=== PATIENT | female | born 1975 | race Caucasian/White ===

== ENCOUNTER 2019-08-10 06:27 | Inpatient (IN) ==
[2019-08-10] MEDS ORDERED: D5LR 1L W PITOCIN 10 UNITS/L 10 UNITS/1,000 ML BAG IV ONE (06:35)
[2019-08-10] MEDS ORDERED: D5 1/2 NS 1000 ML 1,000 ML IV ONE (06:36)
[2019-08-10] MEDS ORDERED: PITOCIN ONE (06:36)
[2019-08-10] MEDS ORDERED: D5 1/2 NS 1L W PITOCIN 20 UNITS/L 20 UNITS/1,000 ML BAG IV ONE (06:36)
--- NOTE | 2019-08-10 07:30 | DR.OB ---
OB Quick Note - Assessment/Plan Assessment/Plan: L&D 08/10/19 at 7:05am S-No complaint. O-Afebrile,VSS IEK=123 with good LTV, +accel, no decel. CTX=none CVX=1cm/25%/-2/VTX AROM with clear fluid. IUPC and FSE placed. A-IUP at 39 0/7 weeks for induction P-Begin pitocin induction Anticipate
[2019-08-10] MEDS ORDERED: REGLAN INJ 10 MG VIAL IVP PRN (07:51)
[2019-08-10] MEDS ORDERED: PITOCIN IVP ONE (07:51)
[2019-08-10] MEDS ORDERED: MORPHINE SULFATE INJ 2 MG INJ IVP PRN (07:51)
[2019-08-10] MEDS ORDERED: PHENERGAN INJ 25 MG IM PRN ×2 (07:51→17:03)
[2019-08-10] MEDS ORDERED: NUBAIN INJ 200 MG VIAL MULTIDOSE IVP PRN (07:51)
[2019-08-10] MEDS ORDERED: D5LR 1L W PITOCIN 10 UNITS/L 10 UNITS/1,000 ML BAG IV PRN (07:51)
[2019-08-10] MEDS ORDERED: LR 1000 ML IV 1,000 ML IV ONE (09:17)
[2019-08-10] MEDS ORDERED: NAROPIN EPIDURAL 0.2% + FENTANYL 90MCG 60 ML EPI ONE ×2 (09:18→15:04)
[2019-08-10] MEDS ORDERED: FENTANYL INJ 100 mcg ONE ×2 (09:18→12:36)
[2019-08-10] MEDS ORDERED: XYLOCAINE-MPF 1% ONE (09:48)
[2019-08-10] MEDS ORDERED: XYLOCAINE 1 % (PLAIN) ONE (09:55)
--- NOTE | 2019-08-10 12:10 | DR.OB ---
OB Quick Note - Assessment/Plan Assessment/Plan: L&D 08/10/19 at 12:00pm Pitocin=12mu/min. S-No complaint. s/p epidural. O-Afebrile,VSS SEL=337 with good LTV, +accel, no decel. CTX=q 1 1/2 to 2 min., about 35-45mmHg CVX=4cm/75%/-1 A-IUP at 39 0/7 weeks for induction AMA P-Cont. pitocin induction Anticipate
[2019-08-10] MEDS ORDERED: MARCAINE 0.25% INJ ONE (13:02)
[2019-08-10] MEDS: D5 1/2 NS 1000 ML 1,000 ML IV SCH ×2 (14:56→17:33)
[2019-08-10] MEDS ORDERED: XYLOCAINE 2% and EPINEPHRINE 1:100,000 ONE (17:00)
--- NOTE | 2019-08-10 17:02 | DR.OB ---
OB Quick Note - Assessment/Plan Assessment/Plan: Delivery Note [employer] 08/10/19 at 4:46pm Patient complete and pushing. Head delivered over intact perineum. No nuchal cord. Nose and mouth bulb suctioned. Body delivered over intact perineum. Cord clamped x 2 and cut. Cord sent for gases. Placenta delivered sp ontaneously / intact / 3 vessel cord. No CVX / vaginal / perineal tears noted. Viable male infant, VTX/OA, wt=6'6" and 9/10, stable to NBN. Mother stable to RR. QVC=734mm.
[2019-08-10] MEDS ORDERED: AMBIEN PO PRN (17:50)
[2019-08-10] MEDS ORDERED: MILK OF MAGNESIA PO PRN (17:50)
[2019-08-10] MEDS ORDERED: ADACEL or BOOSTRIX TDaP VACCINE IM ONE (17:50)
[2019-08-10] MEDS ORDERED: D5 1/2 NS 1000 ML 1,000 ML with PITOCIN 20 UNITS IV SCH ×2 (18:00)
[2019-08-10] MEDS: MOTRIN TAB 800 MG PO PRN (19:15)
[2019-08-10] MEDS: DERMOPLAST PAIN RELIEF SPRAY TOP PRN (19:15)
[2019-08-11] MEDS: MOTRIN TAB 800 MG PO PRN ×2 (05:30→16:35)
[2019-08-11 05:36] LABS: HEMATOCRIT 30.2 % (36.0-47.0); HEMOGLOBIN 10.3 g/dL (12.0-16.0)
[2019-08-11] MEDS: DERMOPLAST PAIN RELIEF SPRAY TOP PRN (05:43)
[2019-08-11] MEDS ORDERED: PRENATAL PLUS PO SCH (09:00)
[2019-08-11] MEDS ORDERED: PROTONIX TAB 40 MG PO SCH (09:00)
[2019-08-11] MEDS ORDERED: PERCOCET TAB 5/325 MG PO PRN (10:37)
[2019-08-11 16:25] VITALS: BP 106/58
== END 2019-08-11 18:30 | disposition home or self-care (01) | DRG 807 ==
LOC: LD 06:27 → EDSTATUS 06:30 → MED/SURG 17:50
PROVIDERS: ADMIT Specialist; ATTEND Specialist
DX: Z23 Encounter for immunization; O99.613 Diseases of the digestive system complicating pregnancy, third trimester; Z37.0 Single live birth; O36.5930 Maternal care for other known or suspected poor fetal growth, third trimester, not applicable or unspecified; Z3A.39 39 weeks gestation of pregnancy